=== PATIENT | female | born 1995 | race Caucasian/White ===

== ENCOUNTER 2016-07-17 22:38 | Emergency (ER) | payer MEDICAID ==
[~2016-07-17] VITALS: Ht 157.5 cm; Wt 65.8 kg
[2016-07-17 22:55] VITALS: BP 96/65
--- NOTE | 2016-07-17 23:18 | NUR ---
21Y F BIB FAMILY C/O OF PAIN TO LT LOWER RIB CAGE AREA. THIS PROBLEM IS GOING ON X1 MO. DENIES N/V/D. TOOK MOTRIN AN HOUR AGO.
--- NOTE | 2016-07-17 23:42 | NUR ---
DR. JIMENEZ EVALUATED THE PT
--- NOTE | 2016-07-17 23:42 | NUR ---
PT TAKEN TO OF
--- NOTE | 2016-07-17 23:43 | NUR ---
Dr. Bello evaluating patient
--- NOTE | 2016-07-17 23:50 | NUR ---
Patient discharged with v/s stable. Written and verbal after care instructions given and explained. Patient alert, oriented and verbalized understanding of instructions. Ambulatory with steady gait. All questions addressed prior to discharge. ID band removed. Patient advised to follow up with PMD. Rx of PEDCID 40MG PO given. Patient educated on indication of medication including possible reaction and side effects. Opportunity to ask questions provided and answered.
[2016-07-17 23:51] VITALS: BP 102/63
== END 2016-07-17 23:50 | disposition home or self-care (01) ==
LOC: MED 22:38
DX: K25.9 Gastric ulcer, unspecified as acute or chronic, without hemorrhage or perforation (principal)